=== PATIENT | female | born 1985 | race Caucasian/White ===

== ENCOUNTER 2016-11-08 13:30 | Outpatient (CLI) | payer OTHER ==
--- NOTE | 2016-11-08 15:53 | DIAGNOSTIC IMAGING REPORT ---
PROCEDURE: US COMPLETE PELVIC W/TRANSVAG INDICATION: PELVIC PAIN TECHNIQUE: Transabdominal and endovaginal baker scale and color Doppler sonographic images of the female pelvis were obtained. COMPARISON: None. FINDINGS: TRANSABDOMINAL SCANS: Retroverted uterus measures about 8.1 cm in length. Normal contour and echotexture. Normal adnexa without suspicious mass. The visible portion of the urinary bladder is normal. No significant free pelvic fluid. TRANSVAGINAL SCANS: The uterus is retroverted and retroflexed in position and has a mildly heterogeneous myometrial echotexture. Multiple small Nabothian cysts are present in the cervix. There are intramural/nearly submucosal fibroids in the right anterior myometrium towards the fundus measuring 1.2 and 0.7 cm respectively. No other dominant myometrial mass. The uterus measures 6.7 x 4.7 x 0.1 cm. The endometrium is 10 mm in thickness. Mildly heterogeneous endometrial echo texture. The right ovary measures 2.6 x 1.8 x 2.0 cm and has a normal follicular echotexture. There is normal arterial and venous ovarian flow present. The left ovary measures 3.2 x 2.8 x 2.2 cm and also has a normal follicular echotexture and normal vascularity. No suspicious adnexal masses or free pelvic fluid. IMPRESSION: 1. There are two small intramural/submucosal myometrial masses in the anterior uterine fundus consistent with small fibroids. No significant distortion of the endometrium. 2. Normal ovaries.
== END 2016-11-08 23:00 ==
LOC: US SRH 13:30
DX: R10.2 Pelvic and perineal pain (principal)

== ENCOUNTER 2016-11-13 10:00 | Outpatient (CLI) | payer OTHER ==
--- NOTE | 2016-11-13 10:53 | DIAGNOSTIC IMAGING REPORT ---
PROCEDURE: US ABDOMEN ULTRASOUND-COMPLETE INDICATION: ABD PAIN TECHNIQUE: Collazo scale and color Doppler sonographic images of the abdomen were obtained without comparison. COMPARISON: None. FINDINGS: The liver is normal in size, contour, and echotexture. No mass or intrahepatic biliary dilatation. The gallbladder is normal without stones or sludge. The wall is normal thickness measuring 1.6 mm No pericholecystic fluid or Schilling sign. The extrahepatic common duct is normal measuring 3.5 mm The visualized pancreas is normal without ductal dilatation or peripancreatic fluid collection. The abdominal aorta is normal in its course and caliber. The retrohepatic inferior vena cava is patent. There is appropriate hepatopetal flow in the portal vein. The right kidney measures 12 cm in length. The left kidney measures 11.3 cm in length. There is a 3.3 centimeter left upper pole cyst. Color Doppler imaging demonstrates normal blood flow in each kidney. The spleen is normal in size measuring 11 cm in length. There is no perihepatic or perisplenic ascites. IMPRESSION: 1. Normal abdominal ultrasound.
== END 2016-11-13 23:00 ==
LOC: US SRH 10:00
DX: R10.9 Unspecified abdominal pain (principal)

== ENCOUNTER 2016-12-31 17:26 | Outpatient (CLI) | payer OTHER | END 2016-12-31 23:00 | LOC: LAB SRH 17:26 | DX: N91.2 Amenorrhea, unspecified (principal) | CPT/HCPCS: 90074; 90197 ==

== ENCOUNTER 2017-01-04 10:42 | Outpatient (CLI) | payer OTHER ==
--- NOTE | 2017-01-04 12:59 | DIAGNOSTIC IMAGING REPORT ---
PROCEDURE: US OB 1ST TRIMESTER W/TRANSVAG INDICATION: VIABILITY,PROBABLE DEMISE TECHNIQUE: Collazo scale, color, and spectral Doppler transabdominal and endovaginal sonographic images of the first trimester gravid uterus were obtained. COMPARISON: None. FINDINGS: TRANSABDOMINAL SCANS: Retroverted uterus measures 9.3 x 7 x 7.9 cm. Single intrauterine gestational sac. 2.4 cm left ovarian corpus luteum cyst. TRANSVAGINAL SCANS: Empty gestational sac (6 weeks 3 days) without pole or yolk sac. There is no cardiac activity. IMPRESSION: 1. Empty gestational sac (6 weeks 3 days). This could still represent an early intrauterine . Recommend follow-up Beta hCG and ultrasound
== END 2017-01-04 23:00 ==
LOC: US SRH 10:42
DX: O36.80X0 Pregnancy with inconclusive fetal viability, not applicable or unspecified (principal)

== ENCOUNTER 2017-01-25 11:25 | Outpatient (CLI) | payer OTHER | END 2017-01-25 23:00 | disposition home or self-care (01) | LOC: LAB SRH 11:25 | DX: O02.1 Missed abortion (principal) | CPT/HCPCS: 90074; 90197 ==